=== PATIENT | male | born 1965 ===

== ENCOUNTER 2018-04-09 13:47 | Emergency (ER) | payer MEDICAID, OTHER ==
[2018-04-09 14:06] VITALS: RESP 18; BMI 36.6
[2018-04-09] MEDS ORDERED: Promethazine DM 12.5 mg-30 mg/10 ml Syrup PO STA (15:27)
[2018-04-09] MEDS ORDERED: Albuterol-Ipratrop 3 mg / 0.5 (3 ml) UD INH STA (15:27)
[2018-04-09] MEDS ORDERED: Albuterol 0.083% Inhal Sol (2.5 mg/3 mL) UD INH STA (15:27)
--- NOTE | 2018-04-09 15:45 | ED PDOC ---
HPI: CCC, URI, Sore Throat Time Seen by Provider: 04/09/18 15:06 Chief Complaint (Nursing): Cough, Cold, Congestion Chief Complaint (Provider): Cough History Per: Patient History/Exam Limitations: no limitations Onset/Duration Of Symptoms: Days (x6) Current Symptoms Are (Timing): Still Present Additional Complaint(s): 52 year old male presents to the ED for evaluation of a dry cough for the past six days associated with a hoarse voice since this morning. He reports at onset he also had left sided ear pain, but that has since resolved. His last medication taken was OTC cough syrup two days ago with minimal relief. Of note, patient states that his girlfriend was just recently diagnosed with pneumonia, and has been in contact with her, but otherwise denies fever, throat pain, abdominal pain, nausea, vomiting, diarrhea, recent travel, chest pain, headache, and dizziness. Additionally, while patient reports a history of asthma, he has never been intubated, and cannot recall the last time he was on steroids. PMD: Isha Hamilton Past Medical History Reviewed: Historical Data, Nursing Documentation, Vital Signs Vital Signs: Last Vital Signs Temp 97 F L 04/09/18 14:05 Pulse 71 04/09/18 14:05 Resp 18 04/09/18 14:05 BP 121/70 04/09/18 14:05 Pulse Ox 96 04/09/18 14:05 - Medical History PMH: Asthma, Back Problems, Bronchitis - Surgical History Surgical History: No Surg Hx - Family History Family History: States: Unknown Family Hx - Social History Current smoker - smoking cessation education provided: Yes (on weekends, approx 1-2 cigs weekly) Alcohol: Social Drugs: Denies - Home Medications Home Medications: Ambulatory Orders Medication Instructions Recorded Albuterol Sulfate [Proair Hfa] 1 puff IH Q6 PRN #1 inh 08/31/17 Azithromycin [Zithromax] 250 mg PO DAILY #4 tab 08/31/17 Fluticasone Nasal [Flonase] 1 spr NS BID #1 spr 08/31/17 RX: Promethazine HCl/Codeine 5 ml PO .Q4-6H #150 ml 08/31/17 [Prometh-Codein 6.25-10 mg/5 ml] Albuterol Sulfate [Ventolin Hfa] 1 puff IH Q4 PRN #1 unit 04/09/18 RX: Azithromycin [Z-Garry] 250 mg PO DAILY #6 tab 04/09/18 RX: Promethazine DM [Phenergan DM 5 ml PO Q6 PRN #200 ml 04/09/18 Syrup] - Allergies Allergies/Adverse Reactions: Allergies Allergy/AdvReac Type Severity Reaction Status Date / Time No Known Allergies Allergy Verified 08/25/17 21:55 Review of Systems ROS Statement: Except As Marked, All Systems Reviewed And Found Negative Constitutional: Negative for: Fever ENT: Negative for: Ear Pain (left ear pain resolved), Throat Pain Cardiovascular: Negative for: Chest Pain Respiratory: Positive for: Cough (dry) Gastrointestinal: Negative for: Nausea, Vomiting, Abdominal Pain, Diarrhea Neurological: Negative for: Headache, Dizziness Physical Exam - Reviewed Nursing Documentation Reviewed: Yes Vital Signs Reviewed: Yes - Physical Exam Comments: GENERAL APPEARANCE: Patient is awake, alert, oriented x 3, in no acute distress. Resting comfortably. SKIN: Warm, dry; (-) cyanosis. ENMT: Mucous membranes moist. Airway patent: (-) stridor. Pharynx: clear, uvula midline (-) swelling, (-) erythema, (-) exudate. TMs: (-) bulging, (-) erythema. Nares: patent. NECK: Supple, FROM (-) JVD (-) tenderness, (-) stiffness, (-) lymphadenopathy. CHEST AND RESPIRATORY: (+) scattered rhonchi, (-) rales, (-) wheezes; breath sounds equal bilaterally. Respirations even and non-labored, speaking in full sentences. HEART AND CARDIOVASCULAR: (-) irregularity ABDOMEN AND GI: Soft; (-) tenderness (-) guarding (-) distention. EXTREMITIES: (-) deformity; (-) edema (-) calf tenderness NEURO AND PSYCH: Mental status as above. Cranial nerves grossly intact; strength symmetric. Gait: steady. Speech: clear. (-) facial asymmetry - ECG O2 Sat by Pulse Oximetry: 96 (RA) Pulse Ox Interpretation: Normal Medical Decision Making Medical Decision Making: Initial Impression: cough Time: 1520 Initial Plan: --CXR --Duoneb 3ml INH --Albuterol 2.5mg INH --Phenergan DM Syrup 10ml PO --Initial peak flow: 370 1610 Post peak flow: 530 1710 CXR: (?) early RML infiltrate Azithromycin 500mg PO ordered. On re-evaluation, patient reports improvement of symptoms. On exam, patient remains AAOx3, in no acute distress. Lungs clear to auscultation, cardiac RRR, abdomen soft, non-tender, repeat neuro exam shows no focal findings. Vitals stable. No evidence of respiratory distress or hypoxia. Lab/Diagnostic results d/w the patient in great detail. Diagnosis of cough, bronchitis vs early pneumonia d/w the patient. Based on history, exam and diagnostic results, plan will be for outpatient follow up with PMD. Patient instructed to follow-up with pmd / referral provided / the clinic in 1- 2 days without fail. Advised to take medication as prescribed. Return to the emergency room at any time for any new or worsening symptoms. Patient states he fully agrees with and understands discharge instructions. States that he agrees with the plan and disposition. Verbalized and repeated discharge instructions and plan. I have given the patient opportunity to ask any additional questions. Scribe Attestation: Documented by Dasha Martinez, acting as a scribe for Vinita Nino PA-C. Provider Scribe Attestation: All medical record entries made by the Scribe were at my direction and personally dictated by me. I have reviewed the chart and agree that the record accurately reflects my personal performance of the history, physical exam, medical decision making, and the department course for this patient. I have also personally directed, reviewed, and agree with the discharge instructions and disposition. Disposition - Clinical Impression Clinical Impression: Cough, Bronchitis, Pneumonia, Tobacco use - Patient ED Disposition Is Patient to be Admitted: No Counseled Patient/Family Regarding: Studies Performed, Diagnosis, Need For Followup, Rx Given, Smoking Cessation - Disposition Referrals: Isha Hamilton [Family Provider] - Disposition: Routine/Home Disposition Time: 17:10 Condition: STABLE Additional Instructions: The emergency medical care you received today was directed at your acute symptoms. If you were prescribed any medication, please fill it and take as directed. It may take several days for your symptoms to resolve. Return to the Emergency Department if your symptoms worsen, do not improve, or if you have any other problems. Please contact your doctor in 2 days for re-evaluation and follow up / or call one of the physicians/clinics you have been referred to that are listed on the Patient Visit Information form that is included in your discharge packet. Bring any paperwork you were given at discharge with you along with any medications you are taking to your follow up visit. Our treatment cannot replace ongoing medical care by a primary care provider (PCP) outside of the emergency department. Prescriptions: Albuterol Sulfate [Ventolin Hfa] 1 puff IH Q4 PRN #1 unit PRN Reason: Shortness Of Breath RX: Azithromycin [Z-Garry] 250 mg PO DAILY #6 tab RX: Promethazine DM [Phenergan DM Syrup] 5 ml PO Q6 PRN #200 ml PRN Reason: Cough Instructions: Pneumonia in Adults, Cough in Adults, Quitting Smoking for Older Adults, Smoking: Not Just Harmful to Your Lungs and Heart, Acute Bronchitis, Community-Acquired Pneumonia in Adults, Inhalers Forms: [employer] (Danish), [facility] ED School/Work Excuse Print Language: TURKMEN - POA Present On Arrival: None
[2018-04-09] MEDS ORDERED: Albuterol 0.042% Inhal Sol (1.25 mg/3 mL) UD ONE (15:48)
[2018-04-09] MEDS ORDERED: Albuterol-Ipratrop 3 mg / 0.5 (3 ml) UD ONE (15:48)
[2018-04-09] MEDS ORDERED: Promethazine 6.25 MG/5 ML CUP ONE (15:49)
[2018-04-09] MEDS ORDERED: Albuterol 0.083% Inhal Sol (2.5 mg/3 mL) UD ONE (16:22)
--- NOTE | 2018-04-09 17:36 | RAD ---
Date of service: 04/09/2018 HISTORY: cough x 6 days COMPARISON: No prior. TECHNIQUE: Chest PA and lateral FINDINGS: LUNGS: No active pulmonary disease. PLEURA: No significant pleural effusion identified. No pneumothorax apparent. CARDIOVASCULAR: No aortic atherosclerotic calcification present. Normal cardiac size. No pulmonary vascular congestion. OSSEOUS STRUCTURES: No significant abnormalities. VISUALIZED UPPER ABDOMEN: Normal. OTHER FINDINGS: None. IMPRESSION: No active disease.
[2018-04-09 17:44] VITALS: BP 129/73; PULSE 69; TEMP 98.2
[2018-04-12 23:33] VITALS: O2SAT 96
== END 2018-04-09 17:42 | disposition home or self-care (01) ==
LOC: H.ER 13:47
DX: R05 Cough (principal); J40 Bronchitis, not specified as acute or chronic; J18.9 Pneumonia, unspecified organism; F17.200 Nicotine dependence, unspecified, uncomplicated

== ENCOUNTER 2018-08-04 07:09 | Emergency (ER) | payer MEDICAID ==
[2018-08-04 07:09] VITALS: BMI 36.6
[2018-08-04 07:29] VITALS: RESP 16
--- NOTE | 2018-08-04 09:15 | ED PDOC ---
HPI: CCC, URI, Sore Throat Time Seen by Provider: 08/04/18 07:22 Chief Complaint (Nursing): Cough, Cold, Congestion Chief Complaint (Provider): Cough, Cold, Congestion History Per: Patient History/Exam Limitations: no limitations Onset/Duration Of Symptoms: Days (x5) Current Symptoms Are (Timing): Still Present Additional Complaint(s): 53 year old male with medical history of asthma, presents to the emergency department with a complaint of cough since 07/31/18. He reports cough became productive with yellow phlegm 3 days ago and has been using Albuterol with some relief. Of note, he notes that his girlfriend is recently admitted in the hospital for bronchitis. Otherwise, he denies fever, chills, recent URI, leg pain or swelling. PCP: Dr. Isha Hamilton Past Medical History Reviewed: Historical Data, Nursing Documentation, Vital Signs Vital Signs: Last Vital Signs Temp 97 F L 08/04/18 07:25 Pulse 53 L 08/04/18 07:25 Resp 16 08/04/18 07:25 BP 131/77 08/04/18 07:25 Pulse Ox 97 08/04/18 07:25 Primary Care Provider: Isha Hamilton - Medical History PMH: Asthma, Back Problems, Bronchitis Denies: Chronic Kidney Disease - Surgical History Surgical History: Denies: No Surg Hx Other surgeries: left foot - Family History Family History: States: Unknown Family Hx - Social History Current smoker - smoking cessation education provided: Yes Alcohol: Social Drugs: Denies - Immunization History Hx Tetanus Toxoid Vaccination: No Hx Influenza Vaccination: Yes Hx Pneumococcal Vaccination: No - Home Medications Home Medications: Ambulatory Orders Medication Instructions Recorded Albuterol Sulfate [Proair Hfa] 1 puff IH Q6 PRN #1 inh 08/31/17 Azithromycin [Zithromax] 250 mg PO DAILY #4 tab 08/31/17 Fluticasone Nasal [Flonase] 1 spr NS BID #1 spr 08/31/17 Promethazine HCl/Codeine 5 ml PO .Q4-6H #150 ml 08/31/17 [Prometh-Codein 6.25-10 mg/5 ml] Albuterol Sulfate [Ventolin Hfa] 1 puff IH Q4 PRN #1 unit 04/09/18 Azithromycin [Z-Garry] 250 mg PO DAILY #6 tab 04/09/18 Promethazine DM [Phenergan DM 5 ml PO Q6 PRN #200 ml 04/09/18 Syrup] Albuterol HFA [Ventolin HFA 90 1 - 2 puff IH Q4H PRN #1 bottle 08/04/18 mcg/actuation (8 g)] Benzonatate [Tessalon Perles] 100 mg PO Q8 PRN #10 sgl 08/04/18 - Allergies Allergies/Adverse Reactions: Allergies Allergy/AdvReac Type Severity Reaction Status Date / Time No Known Allergies Allergy Verified 08/25/17 21:55 Review of Systems ROS Statement: Except As Marked, All Systems Reviewed And Found Negative Constitutional: Negative for: Fever, Chills ENT: Negative for: Nose Congestion, Throat Pain Respiratory: Positive for: Cough, Sputum (yellow) Musculoskeletal: Negative for: Leg Pain (or swelling) Physical Exam - Reviewed Nursing Documentation Reviewed: Yes Vital Signs Reviewed: Yes - Physical Exam Appears: Positive for: Non-toxic, No Acute Distress Head Exam: Positive for: ATRAUMATIC, NORMAL INSPECTION, NORMOCEPHALIC Skin: Positive for: Normal Color Eye Exam: Positive for: Normal appearance ENT: Positive for: Normal ENT Inspection. Negative for: Nasal Congestion, Pharyngeal Erythema Neck: Positive for: Normal, Supple Cardiovascular/Chest: Positive for: Regular Rate, Rhythm Respiratory: Positive for: Normal Breath Sounds. Negative for: Wheezing, Respiratory Distress Pulses-Dorsalis Pedis (L): 2+ Pulses-Dorsalis Pedis (R): 2+ Gastrointestinal/Abdominal: Positive for: Normal Exam Extremity: Positive for: Normal ROM (upper/lower), Capillary Refill (< 2 seconds bilaterally). Negative for: Pedal Edema Neurological/Psych: Positive for: Awake, Alert, Normal Tone, Oriented (x3) - ECG O2 Sat by Pulse Oximetry: 97 (RA) Pulse Ox Interpretation: Normal Medical Decision Making Medical Decision Making: Time: 826 Initial Plan: cough/sob rule out pneumonia and influenza. * Albuterol INH * CXR * Influenza AB flu negative Time: 8 --CXR interpreted by provider: (-) active disease. Upon provider reevaluation, patient is medically stable, reports improvement in symptoms, and requires no further treatment in the ED at this time. Patient will be discharged home and wi ll be contacted if official read of XR is abnormal. Counseling was provided and all questions were answered regarding diagnosis. There is agreement to discharge plan. Return precautions discussed. - Scribe Attestation: Documented by Mary Gandhi, acting as a scribe for Nicolas Garcia MD. Provider Scribe Attestation: All medical record entries made by the Scribe were at my direction and personally dictated by me. I have reviewed the chart and agree that the record accurately reflects my personal performance of the history, physical exam, medical decision making, and the department course for this patient. I have also personally directed, reviewed, and agree with the discharge Disposition - Clinical Impression Clinical Impression: Cough - Patient ED Disposition Is Patient to be Admitted: No Counseled Patient/Family Regarding: Studies Performed, Diagnosis, Need For Followup - Disposition Disposition: Routine/Home Disposition Time: 09:00 Condition: IMPROVED Additional Instructions: follow up with your primary doctor in 1-2 days return to the ED with any worsening or concerning symptoms Prescriptions: Albuterol HFA [Ventolin HFA 90 mcg/actuation (8 g)] 1 - 2 puff IH Q4H PRN #1 bottle PRN Reason: Wheezing Benzonatate [Tessalon Perles] 100 mg PO Q8 PRN #10 sgl PRN Reason: Cough Instructions: Cough, Adult (DC) Forms: [employer] (Kyrgyz)
[2018-08-04] MEDS: Albuterol 0.083% Inhal Sol (2.5 mg/3 mL) UD INH ONE (09:21)
[2018-08-04] MEDS ORDERED: Albuterol 0.083% Inhal Sol (2.5 mg/3 mL) UD ONE (09:21)
[2018-08-04 13:13] VITALS: BP 136/75; PULSE 63; TEMP 97.4
[2018-08-04 13:23] VITALS: O2SAT 97
--- NOTE | 2018-08-04 13:48 | RAD ---
Date of service: 08/04/2018 HISTORY: Cough COMPARISON: 04/09/2018 TECHNIQUE: Chest PA and lateral FINDINGS: LINES AND TUBES: None. LUNG AND PLEURA: The lungs are well inflated and clear. No pleural effusion or pneumothorax. HEART AND MEDIASTINUM: The heart is not enlarged. No aortic atherosclerotic calcifications present. The hilar and mediastinal contours are within normal limits. SKELETAL STRUCTURES: The bony structures are within normal limits for the patient's age. VISUALIZED UPPER ABDOMEN: Normal. OTHER FINDINGS: None. IMPRESSION: No active pulmonary disease.
== END 2018-08-04 13:05 | disposition home or self-care (01) ==
LOC: H.ER 07:09
DX: R05 Cough (principal)